=== PATIENT | female | born 1970 | race Caucasian/White ===

== ENCOUNTER 2017-10-12 01:46 | Emergency (ER) | payer MEDICAID ==
[2017-10-12] MEDS: traMADol 50 MG TAB PO (02:24)
== END 2017-10-12 04:16 | disposition left against medical advice (07) ==
LOC: FTE 01:46
DX: K08.89 Other specified disorders of teeth and supporting structures (principal); F17.210 Nicotine dependence, cigarettes, uncomplicated
CPT/HCPCS: 99283; Z7502

== ENCOUNTER 2018-08-01 22:20 | Emergency (ER) | payer MEDICAID ==
[2018-08-01] MEDS ORDERED: morphine 4 MG/ML VIAL IV (23:00)
[2018-08-01 23:42] LABS: WHITE BLOOD COUNT 16.2 10^3/ul (4.8-10.8)
[2018-08-01 23:42] LABS: HEMATOCRIT 42.5 % (37.0-47.0); HEMOGLOBIN 13.9 g/dl (12.0-16.0); MEAN CORPUSCULAR HEMOGLOBIN 29.2 pg (29.0-33.0); MEAN CORPUSCULAR HGB CONC 32.7 g/dl (32.0-37.0); MEAN CORPUSCULAR VOLUME 89.3 fl (82.0-101.0); MEAN PLATELET VOLUME 9.6 fl (7.4-10.4); PLATELET COUNT 349 10^3/UL (140-415); RED BLOOD COUNT 4.76 10^6/ul (4.20-5.40); RED CELL DISTRIBUTION WIDTH 13.2 % (11.5-14.5)
[2018-08-01] MEDS: DIPHTH/TET/ACEL PERTUSS (ADULT) 0.5 ML VIAL IM* (23:52)
[2018-08-01] MEDS: ONDANSETRON 4 MG INJ IV (23:52)
[2018-08-01] MEDS: LORAZEPAM 2 MG INJ IV (23:53)
[2018-08-01] MEDS: SOD CHLORIDE 0.9% 1,000 ML IV (23:53)
[2018-08-01] MEDS: HYDROmorphONE 0.5 MG/0.5 ML SYG IV (23:53)
[2018-08-01 23:54] LABS: ADD MAN DIFF? YES; POSITIVE DIFF @See below
[2018-08-01] MEDS: LIDOCAINE 1% (MDV) 20 ML INJ INJ (23:56)
[2018-08-02] LABS: INR 0.91; PROTIME 12.4 Sec (11.9-14.9)
[2018-08-02 00:07] LABS: ALANINE AMINOTRANSFERASE 64 IU/L (13-69); ALBUMIN 4.7 g/dl (3.3-4.9); ALBUMIN/GLOBULIN RATIO 1.38; ALKALINE PHOSPHATASE 80 IU/L (42-121); ANION GAP 9 (5-13); ASPARTATE AMINO TRANSFERASE 30 IU/L (15-46); BILIRUBIN,INDIRECT 0.2 mg/dl (0-1.1); BILIRUBIN,TOTAL 0.2 mg/dl (0.2-1.3); BLOOD UREA NITROGEN 18 mg/dl (7-20); CALCIUM 9.9 mg/dl (8.4-10.2); CARBON DIOXIDE 24 mmol/L (21-31); CHLORIDE 108 mmol/L (97-110); CREATININE 0.66 mg/dl (0.44-1.00); Estimated GFR > 60 mL/min (>60); GLUCOSE 97 mg/dl (70-220); LIPASE 205 U/L (23-300); POTASSIUM 3.9 mmol/L (3.5-5.1); SODIUM 141 mmol/L (135-144); TOTAL PROTEIN 8.1 g/dl (6.1-8.1)
[2018-08-02 00:12] LABS: PARTIAL THROMBOPLASTIN TIME 27.7 Sec (23.0-35.0)
[2018-08-02 00:19] LABS: BASOPHIL #M 0.4 10^3/ul (0.0-0.0); BASOPHILS % (M) 3 % (0-2); LYMPHOCYTES #M 4.5 10^3/ul (0.8-2.9); LYMPHOCYTES % (M) 28 % (15-51); MONOCYTE #M 0.1 10^3/ul (0.3-0.9); MONOCYTES % (M) 1 % (0-11); PLATELET ESTIMATE NORMAL; REACTIVE LYMPHOCYTES #M 0.4 10^3/ul (0.0-0.0); REACTIVE LYMPHOCYTES% (M) 3 % (0-0); SEGMENTED NEUTROPHILS (M) % 65 % (39-77); SMUDGE%M 11 % (0-0)
[2018-08-02] MEDS ORDERED: SOD CHLORIDE 0.9% 100 ML (02:12)
[2018-08-02] MEDS ORDERED: IOHEXOL 300MG/ML 150 ML BTL (02:12)
== END 2018-08-02 03:41 | disposition left against medical advice (07) ==
LOC: E/R 08-02 03:41
DX: S02.2XXA Fracture of nasal bones, initial encounter for closed fracture (principal); S01.511A Laceration without foreign body of lip, initial encounter; F17.210 Nicotine dependence, cigarettes, uncomplicated; R04.0 Epistaxis; R07.81 Pleurodynia; Y04.8XXA Assault by other bodily force, initial encounter; Y99.9 Unspecified external cause status; Z76.5 Malingerer [conscious simulation]; Z23 Encounter for immunization
CPT/HCPCS: 36415; 70450; 70486; 71260; 74177; 80053; 83690; 85025; 85610; 85730; 90471; 90715; 96374; 96375; 99285-25

== ENCOUNTER 2018-10-09 15:34 | Emergency (ER) | payer OTHER, MEDICAID ==
[2018-10-09] MEDS: ACETAMINOPHEN 325 MG TAB PO (18:44)
[2018-10-09] MEDS: METHOCARBAMOL 750 MG TAB PO (18:44)
== END 2018-10-09 18:50 | disposition home or self-care (01) ==
LOC: FTE 15:34
DX: M47.892 Other spondylosis, cervical region (principal); M25.512 Pain in left shoulder; M54.5 Low back pain; Z87.891 Personal history of nicotine dependence
CPT/HCPCS: 72040; 72100; 73030; 81025; 99284-25